=== PATIENT | female | born 1985 | race Caucasian/White ===

== ENCOUNTER 2016-10-21 15:36 | Emergency (ER) | payer MEDICAID ==
[2016-10-21 16:14] VITALS: BP 128/65
[2016-10-21] MEDS ORDERED: Ketorolac 60 MG/2 ML SDV IM ONE (17:05)
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
[2016-10-21] MEDS ORDERED: Bacitracin Oint 1 GM U/D Packet TOP ONE (17:17)
== END 2016-10-21 17:30 | disposition home or self-care (01) ==
LOC: JP.ED 15:36
DX: F44.5 Conversion disorder with seizures or convulsions (principal); F17.210 Nicotine dependence, cigarettes, uncomplicated; Z88.1 Allergy status to other antibiotic agents; Z88.8 Allergy status to other drugs, medicaments and biological substances; Z98.890 Other specified postprocedural states
CPT/HCPCS: 96372; 99284; J1885

== ENCOUNTER 2017-11-14 12:30 | Emergency (ER) | payer SELFPAY ==
[2017-11-14 12:45] VITALS: BP 124/87
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
--- NOTE | 2017-11-14 13:59 | CR ---
Tibia Fibula Rt INDICATION: fall,injury COMPARISON: None FINDINGS: 2 views. No fracture, dislocation, or other acute bony abnormality.
== END 2017-11-14 13:43 | disposition home or self-care (01) ==
LOC: JP.ED 12:30
DX: S80.11XA Contusion of right lower leg, initial encounter (principal); Z88.1 Allergy status to other antibiotic agents; Z88.6 Allergy status to analgesic agent; V29.40XA Motorcycle driver injured in collision with unspecified motor vehicles in traffic accident, initial encounter
CPT/HCPCS: 73590-26-RT; 73590-RT; 99284